=== PATIENT | male | born 1990 | race Caucasian/White ===

== ENCOUNTER 2020-02-25 10:53 | Emergency (ER) | payer SELFPAY ==
[~2020-02-25] VITALS: Ht 172.7 cm; Wt 72.6 kg
--- NOTE | 2020-02-25 10:53 | NUR ---
[facility] brought this patient- AOx4, ambulating with steady gait & carrying a plastic bag of belongings, homeless@this time. Per [facility] paramedics verbal report, "[employer] officer observed this patient vomiting in [facility] area."
--- NOTE | 2020-02-25 11:00 | NUR ---
Retching heard from patient, intermittently follows directions from ER staff, respiration:easy, skin warm and dry, comfort and safety measures initiated.
--- NOTE | 2020-02-25 11:03 | NUR ---
Patient said that he does not want to be seen.
--- NOTE | 2020-02-25 11:04 | NUR ---
Patient eloped from facility. ER physician notified.
== END 2020-02-25 11:05 | disposition home or self-care (01) ==
LOC: ER 10:53
DX: Z75.3 Unavailability and inaccessibility of health-care facilities (principal)